=== PATIENT | male | born 1995 | race African-American/Black ===

== ENCOUNTER 2021-05-19 22:35 | Emergency (ER) | payer OTHER ==
[~2021-05-19] VITALS: Ht 190.5 cm; Wt 74.8 kg
[2021-05-19 22:39] VITALS: BP 121/82
[2021-05-19] MEDS ORDERED: NOHOMEMEDICATIONS (22:43)
== END 2021-05-20 01:13 | disposition home or self-care (01) ==
LOC: ER 22:35
DX: R51.9 Headache, unspecified (principal); Z88.1 Allergy status to other antibiotic agents; Z88.0 Allergy status to penicillin

== ENCOUNTER 2021-06-24 08:35 | Emergency (ER) | payer OTHER ==
[~2021-06-24] VITALS: Ht 182.9 cm; Wt 72.6 kg
[~2021-06-24 08:35] MED LIST: NOHOMEMEDICATIONS
[2021-06-24 08:40] VITALS: BP 126/75
== END 2021-06-24 10:41 | disposition home or self-care (01) ==
LOC: ER 08:35
PROVIDERS: Emergency Medicine
DX: R05 Cough (principal); Z20.822 Contact with and (suspected) exposure to COVID-19; J02.9 Acute pharyngitis, unspecified; Z88.1 Allergy status to other antibiotic agents; Z88.0 Allergy status to penicillin

== ENCOUNTER 2021-07-24 12:06 | Emergency (ER) | payer OTHER ==
[~2021-07-24] VITALS: Ht 190.5 cm; Wt 74.8 kg
[2021-07-24] MEDS ORDERED: MOBIC7.5 MG PO (12:42)
[2021-07-24 13:56] VITALS: BP 129/77
== END 2021-07-24 13:56 | disposition home or self-care (01) ==
LOC: ER 12:06
DX: M25.512 Pain in left shoulder (principal); Z88.0 Allergy status to penicillin; Z88.1 Allergy status to other antibiotic agents

== ENCOUNTER 2021-09-07 16:29 | Emergency (ER) | payer OTHER ==
[~2021-09-07] VITALS: Ht 190.5 cm; Wt 72.6 kg
[~2021-09-07 16:29] MED LIST changes: +MOBIC7.5 MG PO
[2021-09-07 16:45] VITALS: BP 135/68
[2021-09-07] MEDS ORDERED: DOXYCYCLINE 10100 MG PO (17:31)
[2021-09-07 18:00] LABS: URINE BILIRUBIN NEGATIVE (Negative); URINE BLOOD TRACE (Negative); URINE CLARITY CLEAR; URINE COLOR YELLOW; URINE GLUCOSE-RANDOM* NEGATIVE (Negative); URINE KETONES TRACE (Negative); URINE NITRITE-REFLEX NEGATIVE (Negative); URINE PROTEIN (DIPSTICK) NEGATIVE (Negative)
[2021-09-07 19:02] LABS: URINE LEUKOCYTES-REFLEX 1+ (Negative)
[2021-09-07 20:08] LABS: BACTERIA-REFLEX 1-9 Few /HPF (None Seen); CASTS None Seen /LPF (None Seen); CRYSTALS None Seen /LPF (None Seen); SQUAMOUS None Seen /LPF (0-3); URINE RBC 1-2 Rare /HPF (NONE SEEN); URINE WBC-REFLEX >25 Many /HPF (0-5)
== END 2021-09-07 17:25 | disposition home or self-care (01) ==
LOC: ER 16:29
PROVIDERS: Emergency Medicine
DX: N34.2 Other urethritis (principal); F12.90 Cannabis use, unspecified, uncomplicated; Z88.1 Allergy status to other antibiotic agents; Z88.0 Allergy status to penicillin